=== PATIENT | female | born 1995 | race Two or more races ===

== ENCOUNTER 2017-04-17 21:38 | Emergency (ER) | payer SELFPAY ==
[~2017-04-17] VITALS: Ht 162.6 cm; Wt 69.4 kg
--- NOTE | 2017-04-17 22:01 | NUR ---
PT PRESENTED TO THE ER WITH A C/O MIDSTERNAL CP WITH INSPIRATION AND COUGH X 2 DAYS. BILATERAL LUNG SOUNDS ARE CLEAR.
--- NOTE | 2017-04-17 22:19 | NUR ---
CXR AT THE BEDSIDE.
--- NOTE | 2017-04-17 22:20 | NUR ---
DR. WETZEL IS AT THE BEDSIDE.
[2017-04-17] MEDS ORDERED: IBUPROFEN 400 MG TABLET ONE (22:21)
[2017-04-17] MEDS ORDERED: IBUPROFEN 400 MG TABLET PO ONE (22:30)
== END 2017-04-17 23:31 | disposition home or self-care (01) ==
LOC: ER 21:41
DX: M94.0 Chondrocostal junction syndrome [Tietze] (principal)
CPT/HCPCS: 71010; 93005; 99284; A4606; Z7610